=== PATIENT | female | born 1985 | race Caucasian/White ===

== ENCOUNTER 2017-09-20 20:14 | Emergency (ER) | payer BC | END 2017-09-20 20:43 | disposition home or self-care (01) | LOC: D.ER 20:14 | DX: J01.90 Acute sinusitis, unspecified (principal); F17.200 Nicotine dependence, unspecified, uncomplicated ==

== ENCOUNTER 2017-10-31 18:07 | Emergency (ER) | payer SELFPAY | END 2017-10-31 20:15 | disposition home or self-care (01) | LOC: D.ER 18:07 | DX: K04.7 Periapical abscess without sinus (principal); K08.89 Other specified disorders of teeth and supporting structures; F17.200 Nicotine dependence, unspecified, uncomplicated ==

== ENCOUNTER 2019-04-16 15:57 | Emergency (ER) | payer SELFPAY ==
[2019-04-16 16:05] VITALS: Wt 50.0 kg
[2019-04-16] MEDS ORDERED: FLUTICASONE PRO16 GM NASAL (16:41)
[2019-04-16] MEDS ORDERED: TESSALON PERLE100 MG PO (16:41)
[2019-04-16] MEDS ORDERED: ZPAK PO (16:41)
[2019-04-16 17:25] VITALS: BP 108/38
== END 2019-04-16 17:25 | disposition home or self-care (01) ==
LOC: D.ER 15:57
DX: J40 Bronchitis, not specified as acute or chronic (principal); J30.9 Allergic rhinitis, unspecified; F17.200 Nicotine dependence, unspecified, uncomplicated

== ENCOUNTER 2019-07-28 15:26 | Emergency (ER) | payer SELFPAY ==
[~2019-07-28] VITALS: Ht 152.4 cm; Wt 46.4 kg
[~2019-07-28 15:26] MED LIST: FLUTICASONE PRO16 GM NASAL; TESSALON PERLE100 MG PO; ZPAK PO
[2019-07-28 15:28] VITALS: BP 120/64; Ht 152.4 cm; Wt 46.4 kg
[2019-07-28] MEDS ORDERED: TESSALON PERLE100 MG PO (16:08)
[2019-07-28] MEDS ORDERED: AMOXICILLIN500 M1 PO (16:34)
== END 2019-07-28 16:47 | disposition home or self-care (01) ==
LOC: D.ER 15:26
DX: J02.0 Streptococcal pharyngitis (principal)

== ENCOUNTER 2019-10-23 14:42 | Emergency (ER) | payer SELFPAY ==
[~2019-10-23] VITALS: Ht 152.4 cm; Wt 45.5 kg
[~2019-10-23 14:42] MED LIST changes: +AMOXICILLIN500 M1 PO
[2019-10-23 14:52] VITALS: Ht 152.4 cm; Wt 45.5 kg
[2019-10-23] MEDS ORDERED: MUCINEX DM ER1 EAC1 PO (15:26)
[2019-10-23] MEDS ORDERED: AMOXICILLIN500 M1 PO (15:26)
[2019-10-23 15:57] VITALS: BP 111/64
== END 2019-10-23 15:59 | disposition home or self-care (01) ==
LOC: D.ER 14:42
DX: J06.9 Acute upper respiratory infection, unspecified (principal); J20.9 Acute bronchitis, unspecified; Z72.0 Tobacco use

== ENCOUNTER 2019-12-10 14:12 | Emergency (ER) | payer SELFPAY ==
[~2019-12-10] VITALS: Ht 152.4 cm; Wt 52.3 kg
[~2019-12-10 14:12] MED LIST changes: +MUCINEX DM ER1 EAC1 PO
[2019-12-10 14:21] VITALS: Ht 152.4 cm; Wt 52.3 kg
[2019-12-10 14:59] LABS: BASOPHILS 0.4 % (0-2); EOSINOPHILS 0.9 % (0-7); HEMOGLOBIN 13.8 g/dL (12-16); IMMATURE GRANULOCYTES 0.2 % (0-5); LYMPHOCYTES 21.3 % (15-50); MCH 30.9 pg (26.0-34.0); MCHC 33.7 g/dL (31.0-37.0); MCV 91.9 fL (80.0-100.0); MEAN PLATELET VOLUME 10.4 fL (7.4-10.4); MONOCYTES 7.8 % (2-11); NEUTROPHILS 69.4 % (40-80); PLATELET COUNT 299 10x3/uL (130-400); RBC 4.46 10x6/uL (4.00-5.40); RDW 12.3 % (11.5-14.5); WBC 9.5 10x3/uL (4.8-10.8)
[2019-12-10 15:07] LABS: CALC OSMOLALITY 276 mosm/kg (275-300); CALCIUM 9.5 mg/dL (8.5-10.1); CARBON DIOXIDE 28.2 mmol/L (21.0-32.0); CHLORIDE - SERUM 102 mmol/L (98-107); CREATININE - SERUM 0.7 mg/dL (0.6-1.3); GLUCOSE 100 mg/dL (74-106); POTASSIUM - SERUM 3.8 mmol/L (3.5-5.1); SODIUM 138 mmol/L (136-145); UREA NITROGEN 16 mg/dL (7-18); eGFR NON AFRICAN AMERICAN > 90 mL/min (90-120)
[2019-12-10 15:13] LABS: ALBUMIN 4.1 g/dL (3.4-5.0); ALKALINE PHOSPHATASE 64 U/L (30-120); ALT (SGPT) 21 U/L (10-68); BILIRUBIN - TOTAL 0.31 mg/dL (0.2-1.3); PROTEIN - SERUM 7.6 g/dL (6.4-8.2)
[2019-12-10 15:14] LABS: HCG SERUM NEGATIVE (NEGATIVE)
[2019-12-10 15:42] LABS: BILIRUBIN NEGATIVE (NEGATIVE); GLUCOSE NEGATIVE (NEGATIVE); KETONE NEGATIVE (NEGATIVE); NITRITE POSITIVE (NEGATIVE); UROBILINOGEN NORMAL (NORMAL)
[2019-12-10 15:44] LABS: BACTERIA MANY /hpf (NEGATIVE); RED CELLS - URINE 0-5 /hpf (0-5)
[2019-12-10 16:05] LABS: WHITE CELLS - URINE 25-50 /hpf (NEGATIVE)
[2019-12-10] MEDS ORDERED: SMZ-TMP DS TABL1 TAB PO (16:09)
[2019-12-10 16:52] VITALS: BP 125/68
== END 2019-12-10 16:52 | disposition home or self-care (01) ==
LOC: D.ER 14:12
PROVIDERS: Emergency Medicine
DX: R10.30 Lower abdominal pain, unspecified (principal); K59.00 Constipation, unspecified; R11.0 Nausea